=== PATIENT | female | born 2005 | race Hispanic/Latino ===

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

== ENCOUNTER 2023-03-14 02:15 | Emergency (ER) | payer OTHER ==
[~2023-03-14] VITALS: Ht 157.5 cm; Wt 67.1 kg
[2023-03-14] MEDS ORDERED: ONDANSETRON 4MG INJ ONE (02:23)
[2023-03-14] MEDS ORDERED: FAMOTIDINE 20MG VIAL IV ONE ×2 (02:24→02:30)
[2023-03-14] MEDS ORDERED: METOCLOPRAMIDE 10 MG/2 ML VIAL ONE (02:24)
[2023-03-14] MEDS ORDERED: ONDANSETRON 4MG INJ IVP ONE (02:30)
[2023-03-14] MEDS ORDERED: 0.9%NACL 1000ML 1,000 ML IV ONE ×2 (02:30→05:30)
[2023-03-14] MEDS ORDERED: METOCLOPRAMIDE 10 MG/2 ML VIAL IVP ONE (02:30)
[2023-03-14 02:51] LABS: BASOPHILS # (AUTO) 0.03 K/uL (0.00-0.20); BASOPHILS % (AUTO) 0.4 % (0.0-5.0); EOSINOPHILS # (AUTO) 0.01 K/uL (0.00-0.70); EOSINOPHILS % (AUTO) 0.1 % (0.0-8.0); HEMATOCRIT 33.4 % (36-48); IMMATURE GRANULOCYTE ABSOLUTE 0.04 K/uL (0-1); LYMPHOCYTES # (AUTO) 1.5 K/uL (1.0-4.8); MEAN CORPUSCULAR HEMOGLOBIN 30.4 pg (27.0-33.0); MEAN CORPUSCULAR HGB CONC 33.8 g/dL (32.0-36.0); MEAN CORPUSCULAR VOLUME 89.8 fL (80-100); MONOCYTES # (AUTO) 0.3 K/uL (0.1-1.0); MONOCYTES % (AUTO) 4.4 % (3.0-13.0); NEUTROPHILS # (AUTO) 5.4 K/uL (1.8-7.7); NEUTROPHILS % (AUTO) 74.5 % (40.0-77.0); PLATELET COUNT (AUTO) 218 K/uL (130-400); RED BLOOD CELL COUNT(AUTO) 3.72 MIL/uL (4.00-5.50); WHITE BLOOD COUNT (AUTO) 7.2 K/uL (4.8-10.8)
[2023-03-14 02:59] LABS: CARBON DIOXIDE 22 mmol/L (21-32); CHLORIDE 111 mmol/L (101-111); CREATININE 0.5 mg/dL (0.5-1.5); GLOMERULAR FILTR. RATE CALC 138 mL/min (>90); GLUCOSE,RANDOM 99 mg/dL (70-105); POTASSIUM 3.5 mmol/L (3.5-5.1); SODIUM SERUM 144 mmol/L (136-145); UREA NITROGEN, BLOOD 7 mg/dL (7-18)
[2023-03-14 03:03] LABS: APPEARANCE,URINE CLEAR (CLEAR); BILIRUBIN,URINE NEGATIVE (NEGATIVE); GLUCOSE, URINE (UA) NEGATIVE (NEGATIVE); KETONES,URINE NEGATIVE (NEGATIVE); LEUKOCYTE ESTERASE ,URINE NEGATIVE Leu/uL (NEGATIVE); NITRATE,URINE NEGATIVE (NEGATIVE); OCCULT BLOOD,URINE NEGATIVE (NEGATIVE); PROTEIN,URINE NEGATIVE (NEGATIVE); UROBILINOGEN,URINE 0.2 mg/dL (0.2-1.0)
[2023-03-14 03:05] LABS: ACETAMINOPHEN < 1 mcg/mL (10-30); ALANINE AMINOTRANSFERASE 11 U/L (12-78); ALBUMIN 3.3 g/dL (3.5-5.0); ALCOHOL, BLOOD 151 mg/dL (0-10); ASPARTATE AMINOTRANSFERASE 11 U/L (10-37); BILIRUBIN,TOTAL 0.3 mg/dL (0.2-1.0); SALICYLATE < 2.8 mg/dL (2.8-20.0); TOTAL PROTEIN, SERUM 6.3 g/dL (6.0-8.3)
[2023-03-14 03:05] LABS: HCG,QUALITATIVE URINE NEGATIVE (NEGATIVE)
[2023-03-14 03:07] LABS: ADD UA MICROSCOPIC NO; COLOR,URINE Light-Yellow (YELLOW)
[2023-03-14 03:11] LABS: AMPHET/METH SCREEN,URINE NEGATIVE (NEGATIVE); BARBITURATE SCREEN, URINE NEGATIVE (NEGATIVE); BENZODIAZEPINES SCREEN,URINE NEGATIVE (NEGATIVE); CANNABINOID SCREEN,URINE NEGATIVE (NEGATIVE); COCAINE SCREEN,URINE NEGATIVE (NEGATIVE); OPIATE SCREEN,URINE NEGATIVE (NEGATIVE); PHENCYCLIDINE SCREEN,URINE NEGATIVE (NEGATIVE)
[2023-03-14 07:18] VITALS: BP 110/89; PULSE 96; RESP 16; O2SAT 100
[2023-03-14] MEDS ORDERED: ONDA4TAB10 PO (08:11)
== END 2023-03-14 08:17 | disposition home or self-care (01) ==
LOC: EDH 02:15
DX: F10.129 Alcohol abuse with intoxication, unspecified (principal); R11.10 Vomiting, unspecified
CPT/HCPCS: 99284; 96374; 96375; 96361; 80053; 80305; 85025; 81025; 36415; 81003; J3490; J7030; J2405; J2765; G0481